=== PATIENT | female | born 1940 | race Caucasian/White ===

== ENCOUNTER 2017-07-19 13:29 | Inpatient (IN) ==
--- NOTE | 2017-07-19 14:47 | Cardiology History & Physical ---
History of Present Illness Chief complaint: dizziness and weakness HPI: Mariajose is a 76 year old female ho is known to Dr. Milligan with a history of PAF , CAD, aortic valve and carotid stenosis, HTN and HLD who went to her PCP due to dizziness and weakness, who was admitted to [facility] for observation. She was noted to have frequent PVCs and Dr. Milligan was contacted for transfer to [facility] for further evaluation. Review of Systems - Constitutional Constitutional: Present: weakness. Absent: chills, fatigue, fever(s) - EENMT Eyes: Absent: change in vision Balance: Absent: vertigo Mouth/Throat: Absent: sore throat - Cardiovascular Cardiovascular: Absent: chest pain, palpitations, syncope, dyspnea on exertion, orthopnea, edema, heart murmur Vascular: Absent: pedal edema - Respiratory Respiratory: Absent: cough, dyspnea, dyspnea on exertion - Gastrointestinal Gastrointestinal: Absent: abdominal pain, constipation, diarrhea, nausea, vomiting - Genitourinary Genitourinary: Absent: dysuria - Integumentary/Breasts Integumentary: Absent: rash - Neurological Neurological: Present: dizziness - Endocrine Endocrine: Present: palpitations PFSH Patient Stated Medical History Peripheral Neuropathy Yes Cataracts Yes: JUMA. CAT. Glaucoma Yes Cardiac Arrhythmia Yes: AFIB Congestive Heart Failure Yes Heart Murmur Yes Hypertension Yes Myocardial Infarction Yes Anesthesia Reactions Yes: N&V Other Reproductive Yes: uterine cancer Surgical History: Cholecystectomy. Hysterectomy JAXON, BSO Family History: Patient is adopted, no known family history - Social History Smoking status: Never smoker Substance use type: does not use Alcohol intake frequency: does not drink Household members: spouse Current occupational status: retired Current residence: Apartment/Private Home Medications Home Medications Medication Instructions Recorded Confirmed Type Gabapentin 1 cap PO TID #0 cap 10/08/14 07/19/17 History Levothyroxine Sodium 75 mcg PO ACB #0 tab 10/08/14 07/19/17 History Metoprolol Tartrate 100 mg PO BIDWM #0 tab 10/08/14 07/19/17 History PARoxetine HCl [Paroxetine HCl] 1 tab PO DAILY #0 10/08/14 07/19/17 History Potassium Chloride 20 meq PO BID #0 tab 10/08/14 07/19/17 History Warfarin Sodium [Coumadin] 2 mg PO NOON #0 tab 10/08/14 07/19/17 History Furosemide [Lasix 20 mg Tab] 1 tab PO BID 11/23/16 07/19/17 History Calcium 250 + D [Os [place] + D] 1 tab PO DAILY 07/19/17 07/19/17 History Lisinopril [Prinivil] 20 mg PO DAILY 07/19/17 07/19/17 History Metoprolol Tartrate 100 mg PO BID 07/19/17 07/19/17 History Rosuvastatin [Crestor] 10 mg PO DAILY 07/19/17 07/19/17 History Tramadol [Ultram] 50 mg PO Q6HR 07/19/17 07/19/17 History Amiodarone [Pacerone] 200 mg PO DAILY #30 tab 07/22/17 Rx Minocycline [Minocin] 100 mg PO BID #14 cap 07/22/17 Rx Allergies Allergy/AdvReac Type Severity Reaction Status Date / Time amoxicillin Allergy Mild NAUSEA Verified 07/19/17 17:51 codeine Allergy Unknown Vomiting Verified 07/19/17 17:51 atorvastatin [From Lipitor] Allergy Verified 07/19/17 17:51 oxycodone AdvReac Unknown N/V Verified 07/19/17 17:51 propoxyphene AdvReac Unknown N/V Verified 11/23/16 12:09 Exam - Constitutional no acute distress, well nourished, cooperative - Routine HEENT Exam Head: Present: normocephalic ENT: Present: mucous membranes moist - Routine Neck Exam Absent: JVD, carotid bruit - Routine Chest/Breast/Axilla Exam Chest wall: Absent: tenderness - Routine Respiratory Exam Present: CTA bilaterally. Absent: rales, wheezes - Routine Cardiovascular Exam Present: murmur (II/), irregularly irregular - Routine Abdominal Exam Present: soft, non tender - Routine Extremities Exam Present: no edema, pulses intact - Routine Skin Exam Present: intact, dry, warm - Routine Neurological Exam Present: alert, oriented X3 - Routine Psychiatric Exam Present: normal affect, normal thought process Results 07/25/17 03:40 07/25/17 03:40 - Imaging and Cardiology Imaging & Cardiology Narrative: Date of Exam: 07/19/17 Type of Exam(s): US echo doppler complete DATE OF PROCEDURE July 19, 2017 This is a two-dimensional echo with spectral Doppler, color-flow and M-mode. It was obtained in a patient with atrial fibrillation, dizziness, and PVCs. Left atrium is dilated. Left ventricle end-diastolic dimension is normal. Left ventricle wall thickness increased. LV systolic function is normal with ejection fraction of 68%. Right atrium is dilated. Right ventricle is normal. Aortic root dimension is normal. Mitral annulus is calcified. Mitral valve leaflets are normal with mild mitral regurgitation. Aortic valve shows fibrocalcific changes. Transaortic velocities are increased with peak velocity of 3.85 m/sec with peak gradient of 59 and mean gradient of 34. Aortic valve area is calculated at 0.81 cm2. Moderate aortic insufficiency is present. Tricuspid valve shows mild tricuspid regurgitation with severe pulmonary hypertension with estimated pulmonary artery systolic pressure of 69. Pulmonary valve shows no pulmonary insufficiency. There is no pericardial effusion. IMPRESSION 1. Normal LV systolic function with ejection fraction of 68%. 2. Biatrial dilation. 3. Concentric left ventricular hypertrophy. 4. Mitral annulus calcification with mild mitral regurgitation. 5. Moderate to severe aortic stenosis with a valve area of 0.81 cm2 with moderate aortic insufficiency. 6. Mild tricuspid regurgitation with severe pulmonary hypertension with estimated pulmonary artery systolic pressure of 69. 07/22/17 10:54 Hospital Course This is a general summary of the patient's hospital course. For more details refer to the complete medical record. Assessment and Plan - Attestation Attestation Narrative: 07/27/17 13:43 Recommendation After examining the patient I agree with the above assessment. I am involved in the formulation of the patient's plan of care. - Assessment and Plan (1) Aortic stenosis Status: Acute Moderate to severe with KAYLEY 0.81cm2 - Will need L & RHC when INR allows, probably Tuesday of this week. (2) Ventricular premature depolarization Status: Acute Bigeminal and Trigeminal pattern. - Continue to monitor telemetry - 2D echo, see report (3) Paroxysmal atrial fibrillation Status: Chronic - Amiodarone bolus and drip. - Takes Warfarin, PCP manages INRs - Hold coumadin for now, INR today 3.76 - NPO after midnight for DCCV tomorrow - Mag, TSH - EKG in am (4) Atherosclerotic heart disease of [place] coronary artery without angina pectoris Status: Chronic continue current therapy with routine monitoring (5) Occlusion and stenosis of bilateral carotid arteries Status: Chronic Has outpatient carotid duplex scheduled (6) Essential (primary) hypertension Status: Chronic Well controlled on current therapy, continue Metoprolol, Lasix and Lisinopril (7) Mixed hyperlipidemia Status: Chronic She cannot tolerate Statin therapy. - Lipid panel
[2017-07-19] MEDS ORDERED: AMIODARONE 150 MG in NS 100 ML IV ONE (15:11)
[2017-07-19] MEDS ORDERED: AMIODARONE 450 MG in NS 500ml 250 ML IV SCH (15:15)
[2017-07-19] MEDS ORDERED: HYDROCODONE/APAP 5mg/325mg TABLET PO PRN (16:31)
[2017-07-19] MEDS: ACETAMINOPHEN 325 MG TABLET PO PRN (16:53)
[2017-07-19 17:00] VITALS: BMI 31.4
[2017-07-19] MEDS: GABAPENTIN 300 MG CAPSULE PO SCH (20:39)
[2017-07-19] MEDS: TRAMADOL 50 MG TABLET PO SCH (20:39)
[2017-07-19] MEDS: ROSUVASTATIN 10 MG TABLET PO SCH (20:39)
[2017-07-19] MEDS ORDERED: AMIODARONE 900 MG in NS 500ml 500 ML IV SCH (21:15)
[2017-07-20] MEDS: TRAMADOL 50 MG TABLET PO SCH ×4 (02:01→21:24)
[2017-07-20] MEDS: LEVOTHYROXINE 75 MCG TABLET PO SCH (05:49)
--- NOTE | 2017-07-20 09:11 | XRay Report ---
INDICATION: SOA PROCEDURE: CHEST 2-VIEWS UPRIGHT (PA & LAT) Encounter: Initial COMPARISON: None FINDINGS: The lungs are clear without evidence of focal abnormal airspace opacity. There is no pleural effusion or pneumothorax. The cardiac silhouette is mildly enlarged. The mediastinal contours and pulmonary vascularity are within normal limits. There is no significant skeletal abnormality. IMPRESSION: Mild enlargement of the cardiac silhouette could be due to cardiomegaly or pericardial effusion. No focal pneumonia or overt congestive failure. .
[2017-07-20] MEDS: PAROXETINE 10 MG TABLET PO SCH (09:24)
[2017-07-20] MEDS: GABAPENTIN 300 MG CAPSULE PO SCH ×3 (09:24→21:24)
[2017-07-20] MEDS: FUROSEMIDE 20 MG TABLET PO SCH ×2 (09:28→17:29)
[2017-07-20] MEDS: ACETAMINOPHEN 325 MG TABLET PO PRN (09:29)
[2017-07-20] MEDS: LISINOPRIL 20 MG TABLET PO SCH (09:29)
--- NOTE | 2017-07-20 12:20 | Echocardiogram ---
DATE OF PROCEDURE July 19, 2017 This is a two-dimensional echo with spectral Doppler, color-flow and M-mode. It was obtained in a patient with atrial fibrillation, dizziness, and PVCs. Left atrium is dilated. Left ventricle end-diastolic dimension is normal. Left ventricle wall thickness increased. LV systolic function is normal with ejection fraction of 68%. Right atrium is dilated. Right ventricle is normal. Aortic root dimension is normal. Mitral annulus is calcified. Mitral valve leaflets are normal with mild mitral regurgitation. Aortic valve shows fibrocalcific changes. Transaortic velocities are increased with peak velocity of 3.85 m/sec with peak gradient of 59 and mean gradient of 34. Aortic valve area is calculated at 0.81 cm2. Moderate aortic insufficiency is present. Tricuspid valve shows mild tricuspid regurgitation with severe pulmonary hypertension with estimated pulmonary artery systolic pressure of 69. Pulmonary valve shows no pulmonary insufficiency. There is no pericardial effusion. IMPRESSION 1. Normal LV systolic function with ejection fraction of 68%. 2. Biatrial dilation. 3. Concentric left ventricular hypertrophy. 4. Mitral annulus calcification with mild mitral regurgitation. 5. Moderate to severe aortic stenosis with a valve area of 0.81 cm2 with moderate aortic insufficiency. 6. Mild tricuspid regurgitation with severe pulmonary hypertension with estimated pulmonary artery systolic pressure of 69. MTDD
[2017-07-20] MEDS ORDERED: FentaNYL 100 MCG/2 ML INJECTION ONE (13:40)
[2017-07-20] MEDS ORDERED: SALINE FLUSH 10ml SYRINGE ONE (13:40)
[2017-07-20] MEDS ORDERED: FLUMAZENIL 0.5mg/5ml INJECTION IVP ONE ×3 (13:40→14:03)
[2017-07-20] MEDS ORDERED: ATROPINE 0.4 MG/ML INJECTION ONE (13:40)
[2017-07-20] MEDS ORDERED: MIDAZOLAM 2mg/2ml INJECTION ONE (13:40)
[2017-07-20] MEDS ORDERED: NS FLUSH BAG 500ml IV PRN (14:00)
--- NOTE | 2017-07-20 14:07 | Wound Care Progress Note ---
Wound Center Progress Note: Pt seen for wound consult r/t MARSI (medical adhesive related skin injury). Nurse reports this wound in on pt's chest. According to nurse, pt had a cardioversion this AM, and it is not appropriate for pt to be seen at this time. Will assess pt tomorrow.
[2017-07-20] MEDS: DOPamine PREMIX 400 MG/250 ML BAG IV PRN (14:47)
[2017-07-20] MEDS ORDERED: PHYTONADIONE 1 MG/0.5 ML ORAL LIQUID PO ONE (15:24)
[2017-07-20] MEDS: ONDANSETRON ODT 4 MG TABLET PO PRN (15:37)
--- NOTE | 2017-07-20 15:48 | DC Cardioversion ---
DATE OF PROCEDURE July 20, 2017 INDICATION The patient is a 76-year-old lady who was admitted with symptomatic atrial fibrillation and PVCs and on chronic anticoagulation. She was referred for DC cardioversion after starting her on amiodarone. INFORMED CONSENT Informed consent was obtained after explaining the procedure and the potential risks to the patient and who agreed to proceed with the procedure. PROCEDURE 1. DC cardioversion. TECHNIQUE Conscious sedation was performed using Versed and fentanyl. Anterior-posterior Zoll pads were applied. 360 joules of energy was delivered in synchronized manner and patient converted from atrial fibrillation into sinus and some junctional beats. She tolerated the procedure well with no complications. IMPRESSION 1. Successful DC cardioversion of atrial fibrillation to sinus rhythm. PLAN Will continue anticoagulation in future as well as continuing antiarrhythmics to maintain sinus. JEREMY
[2017-07-20] MEDS: METOCLOPRAMIDE 10mg/2ml INJECTION IVP PRN (16:23)
[2017-07-20] MEDS: ROSUVASTATIN 10 MG TABLET PO SCH (21:53)
[2017-07-21] MEDS: TRAMADOL 50 MG TABLET PO SCH ×4 (06:35→20:45)
[2017-07-21] MEDS: LEVOTHYROXINE 75 MCG TABLET PO SCH (06:43)
[2017-07-21] MEDS: ACETAMINOPHEN 325 MG TABLET PO PRN (07:05)
[2017-07-21] MEDS: PAROXETINE 10 MG TABLET PO SCH (08:26)
[2017-07-21] MEDS: FUROSEMIDE 20 MG TABLET PO SCH ×2 (08:27→14:52)
[2017-07-21] MEDS: GABAPENTIN 300 MG CAPSULE PO SCH ×3 (08:28→20:46)
[2017-07-21] MEDS: LISINOPRIL 20 MG TABLET PO SCH (08:37)
[2017-07-21] MEDS: METOCLOPRAMIDE 10mg/2ml INJECTION IVP PRN (08:59)
[2017-07-21] MEDS: DOPamine PREMIX 400 MG/250 ML BAG IV PRN (10:20)
[2017-07-21] MEDS: ONDANSETRON ODT 4 MG TABLET PO PRN (16:07)
[2017-07-21] MEDS ORDERED: CEFAZOLIN 1 G INJECTION ONE (16:25)
[2017-07-21] MEDS ORDERED: FentaNYL 100 MCG/2 ML INJECTION ONE (16:26)
[2017-07-21] MEDS ORDERED: MIDAZOLAM 2mg/2ml INJECTION ONE (16:26)
[2017-07-21] MEDS ORDERED: SALINE FLUSH 10ml SYRINGE ONE (16:27)
[2017-07-21] MEDS ORDERED: LIDOCAINE 1% (10mg/ml) 30ml SDV INJ ONE (16:27)
[2017-07-21] MEDS ORDERED: BACITRACIN 50,000 UNIT INJECTION ONE (16:27)
[2017-07-21] MEDS ORDERED: NS 1,000 ML ONE (16:32)
--- NOTE | 2017-07-21 16:36 | Wound Care Progress Note ---
Wound Center Progress Note: Pt seen for wound consult r/t wound on R great toe and MARSI on upper R chest. Pt resting in bed. Pt has wound to R lateral great toe. She states she has no feeling in her feet, she was cutting her toenails and did not realize she had cut the nail too deep. Nail has dried blood surrounding nail bed. Lateral aspect has partial thickness wound, no slough, no drainage. All toes have a bluish color, slow to arlene. Pt reports no pain. R upper mid chest: MARSI from old telemetry patch. Area is linear, crusted, no active drainage. Pt reports no pain. Wound tx plan: To upper mid chest: apply A & D ointment. To R lateral great toe: Apply Aquacel Ag to wound bed, cover with Mepilex, change q 3 days.
--- NOTE | 2017-07-21 16:40 | Wound Care Progress Note ---
Wound Management - Patient Status Premedicated Prior to Dressing Change: No - Wound Right Lateral Great Toe Wound Type: accident Wound Present on Admission?: Yes Length: 0.5 Width: 1.1 Depth: 0.1 Wound Bed Appearance: [place] Angélica Wound Appearance: Blanched/Dull Undermining: No Drainage Amount: None Drainage Odor: No Odor Dressing Status: Changed Primary Dressing: Silver Dressing Secondary Dressing: Foam Dressing Dressing Change Date: 07/21/17 Dressing Change Time: 16:10 Dressing Change Patient Tolerance: Tolerated Well (All toes are bluish, slow to arlene.) Right Upper Medial Chest Wound Type: Medical adhesive related skin injury Length: 0.3 Width: 2 Depth: 0.1 Tunneling: No Undermining: No Drainage Amount: None Drainage Odor: No Odor Dressing Status: Open to Air (partial thickness wound/crust)
[2017-07-21] MEDS ORDERED: MAG-AL + SIM ORAL LIQUID 30ml PO PRN (17:48)
[2017-07-21] MEDS ORDERED: NS 1,000 ML IV SCH (17:48)
[2017-07-21] MEDS ORDERED: SALINE FLUSH 10ml SYRINGE IV PRN (17:48)
[2017-07-21] MEDS: AMIODARONE 200 MG TABLET PO SCH (18:31)
[2017-07-21] MEDS ORDERED: FALL RISK - PHARMACY CONSULT MC ONE (20:41)
[2017-07-21] MEDS: ROSUVASTATIN 10 MG TABLET PO SCH (20:46)
[2017-07-22] MEDS: CEFAZOLIN 1 G in NS 100 ML IV SCH ×2 (00:35→11:36)
[2017-07-22] MEDS: TRAMADOL 50 MG TABLET PO SCH ×4 (03:16→21:25)
[2017-07-22] MEDS: LEVOTHYROXINE 75 MCG TABLET PO SCH (05:57)
[2017-07-22] MEDS ORDERED: NS 1,000 ML IV SCH ×2 (08:15→21:00)
--- NOTE | 2017-07-22 09:04 | XRay Report ---
Indication: ppm PROCEDURE: XR chest 1V: Encounter: Initial Comparison: July 20, 2017 Findings: New left dual-lead cardiac pacemaker with right atrial and right ventricular leads. No evidence of lead fracture. No pneumothorax. New hazy airspace opacity in the right lower lobe without gross pleural effusion. Heart size and mediastinal contours are stable. Impression: No pneumothorax. Right lower lobe atelectasis, aspiration or pneumonia. .
--- NOTE | 2017-07-22 09:07 | XRay Report ---
INDICATION: ppm PROCEDURE: CHEST 2-VIEWS UPRIGHT (PA & LAT) Encounter: Initial COMPARISON: July 21, 2017 FINDINGS: Left pacemaker is grossly stable in appearance. No pneumothorax. Continued evidence of hazy airspace disease in the right lung base. Cardiomediastinal contours are stable. Pulmonary vascularity is normal. Impression: No pneumothorax. Persistent right basilar infiltrate. .
[2017-07-22] MEDS: PAROXETINE 10 MG TABLET PO SCH (09:39)
[2017-07-22] MEDS: AMIODARONE 200 MG TABLET PO SCH (09:39)
[2017-07-22] MEDS: FUROSEMIDE 20 MG TABLET PO SCH ×2 (09:39→16:17)
[2017-07-22] MEDS: GABAPENTIN 300 MG CAPSULE PO SCH ×3 (09:41→21:24)
[2017-07-22] MEDS: LISINOPRIL 20 MG TABLET PO SCH (09:46)
[2017-07-22] MEDS ORDERED: HEPARIN 1,000 UNITS/500 ML PREMIX (*CVL ONLY*) IV ONE (14:57)
[2017-07-22] MEDS ORDERED: LIDOCAINE 1% (10mg/ml) 30ml SDV INJ ONE (14:57)
[2017-07-22] MEDS ORDERED: FentaNYL 100 MCG/2 ML INJECTION ONE (15:07)
[2017-07-22] MEDS ORDERED: MIDAZOLAM 2mg/2ml INJECTION ONE (15:07)
[2017-07-22] MEDS ORDERED: PROMETHAZINE 25 MG INJECTION IVP PRN (16:12)
[2017-07-22] MEDS ORDERED: BISACODYL 10 MG SUPPOSITORY RECTALLY PRN (16:12)
[2017-07-22] MEDS ORDERED: MAG-AL + SIM ORAL LIQUID 30ml PO PRN (16:12)
[2017-07-22] MEDS ORDERED: ACETAMINOPHEN 325 MG TABLET PO PRN (16:12)
[2017-07-22] MEDS ORDERED: NITROGLYCERIN 0.4 MG SUBLINGUAL TABLET SL PRN (16:12)
[2017-07-22] MEDS ORDERED: Bisacodyl EC TAB 5 MG TABLET PO PRN (16:12)
[2017-07-22] MEDS ORDERED: LORazepam 0.5 MG TABLET PO PRN (16:12)
[2017-07-22] MEDS ORDERED: METOCLOPRAMIDE 10mg/2ml INJECTION IVP PRN (16:12)
[2017-07-22] MEDS ORDERED: ONDANSETRON 4 MG/2 ML INJECTION IVP PRN (16:12)
[2017-07-22] MEDS ORDERED: ATROPINE 1 MG/ML INJECTION IVP PRN (16:12)
--- NOTE | 2017-07-22 16:24 | Discharge Summary ---
<Charo Arriola M - Last Filed: 07/27/17 11:50> Discharge Information Date of admission: 07/20/17 16:45 Anticipated date of discharge: 07/22/17 Attending Physician: Dominic Milligan MD Primary care physician: Natalie Mtz APRN Consults: 07/19/17 17:40 W[facility]in Clinic Consult [CONS] Routine 07/20/17 08:06 [facility] Consult [CONS] Routine 07/21/17 07:31 W[facility]in Clinic Consult [CONS] Routine - Discharge Diagnosis (1) Aortic stenosis Status: Acute (2) Ventricular premature depolarization Status: Acute (3) Paroxysmal atrial fibrillation Status: Chronic (4) Atherosclerotic heart disease of alutiiq coronary artery without angina pectoris Status: Chronic (5) Occlusion and stenosis of bilateral carotid arteries Status: Chronic (6) Essential (primary) hypertension Status: Chronic (7) Mixed hyperlipidemia Status: Chronic CAD, AFib, PVCs, Junctional bradycardia - Procedures Procedures: DATE OF PROCEDURE July 20, 2017 INDICATION The patient is a 76-year-old lady who was admitted with symptomatic atrial fibrillation and PVCs and on chronic anticoagulation. She was referred for DC cardioversion after starting her on amiodarone. INFORMED CONSENT Informed consent was obtained after explaining the procedure and the potential risks to the patient and who agreed to proceed with the procedure. PROCEDURE 1. DC cardioversion. TECHNIQUE Conscious sedation was performed using Versed and fentanyl. Anterior-posterior Zoll pads were applied. 360 joules of energy was delivered in synchronized manner and patient converted from atrial fibrillation into sinus and some junctional beats. She tolerated the procedure well with no complications. IMPRESSION 1. Successful DC cardioversion of atrial fibrillation to sinus rhythm. PLAN Will continue anticoagulation in future as well as continuing antiarrhythmics to maintain sinus. Medtronic Dual lead pacemaker insertion Left heart cath Date of Exam: 07/22/17 Type of Exam(s): CA heart cath LT DATE OF PROCEDURE July 22, 2017 INDICATIONS The patient is a 76-year-old lady who was admitted with shortness of breath, weakness, fatigue and echocardiogram showed significant aortic stenosis and was referred for further evaluation by cardiac catheterization and possible intervention. INFORMED CONSENT Informed consent was obtained after explaining the procedure and the potential risks to the patient who agreed to proceed with the procedure. PROCEDURE 1. Left heart catheterization. 2. Coronary angiography. 3. Left ventriculography. 4. Right femoral angiography to visualize the vessel for closure device. 5. Successful Mynx deployment for hemostasis. TECHNIQUE She was prepped and draped in the usual sterile techniques. Conscious sedation was performed using Versed and fentanyl. 1% lidocaine was used for local anesthesia. Using modified Seldinger technique, arterial access was obtained into the right femoral artery with placement of a 6-[place] Island[place] arterial sheath. LEFT VENTRICULOGRAPHY Left ventriculography in single-plane SWENSON shallow projection showed normal LV systolic function with ejection fraction of 65% with 5-10 mm of gradient across the aortic valve with no mitral regurgitation. LVEDP was about 7. CORONARY ANGIOGRAPHY Left main was free of significant lesions and bifurcated into left anterior descending and left circumflex arteries. The left anterior descending artery was a medium caliber vessel which wrapped around the apex and was diffusely diseased with two lesions of about 50%. One lesion was at the junction of the proximal and mid third of the vessel. The second lesion was at the junction of the mid and distal third of the vessel. Diagonals were small with no significant lesions. Left circumflex artery was diffusely irregular with no hemodynamically significant lesions. Right coronary artery was dominant with diffuse disease of up to about 40-50%. Right femoral angiography showed patent common femoral, proximal SFA and profunda and therefore Mynx was used for hemostasis. IMPRESSION 1. Normal LV systolic function with ejection fraction of about 65%. 2. Minimal gradient across the aortic valve with what appears to be no significant aortic stenosis. 3. Moderate coronary artery disease as described above. 4. Successful Mynx deployment for hemostasis. PLAN Medical management. - Laboratory Labs: 07/22/17 04:19 07/22/17 04:19 History of Present Illness HPI: Mariajose is a 76 year old female ho is known to Dr. Milligan with a history of PAF , CAD, aortic valve and carotid stenosis, HTN and HLD who went to her PCP due to dizziness and weakness, who was admitted to [facility] for observation. She was noted to have frequent PVCs and Dr. Milligan was contacted [place] [facility]. Hospital Course This is a general summary of the patient's hospital course. For more details refer to the complete medical record. Hospital course: Resume heart healthy diet. Limit activity for 2 days. No lifting more than 10 pounds, no pushing or pulling for 1 week. No raising your left elbow over your shoulder for 3 weeks. No driving for 3 weeks. Wear your sling at night only for 3 weeks. New prescriptions: Minocycline 100 mg by mouth every morning and evening for 1 week. Amiodarone 200mg by mouth daily. Hold Lasix and Potassium for 2 days, resume Lasix 20mg by mouth daily with potassium 20mg by mouth daily on Tuesday. Resume Coumadin on Tuesday morning. Have lab drawn next Tuesday Keep site clean and dry. No tub baths or swimming for 1 week. You may shower. Aortic stenosis Current visit: Yes Status: Acute - Moderate to severe with KAYLEY 0.81cm2 - Will need L & RHC when INR allows, probably Tuesday of this week. Ventricular premature depolarization Current visit: Yes Status: Acute - Bigeminal and Trigeminal pattern. - Continue to monitor telemetry - 2D echo, see report Paroxysmal atrial fibrillation Current visit: No Status: Chronic - Amiodarone bolus and drip. - Takes Warfarin, PCP manages INRs - Hold coumadin for now, INR today 3.76 - NPO after midnight for DCCV tomorrow - Mag, TSH - EKG in am Atherosclerotic heart disease of alutiiq coronary artery without angina pectoris Current visit: No Status: Chronic - continue current therapy with routine monitoring Occlusion and stenosis of bilateral carotid arteries Current visit: No Status: Chronic - Has outpatient carotid duplex scheduled Essential (primary) hypertension Current visit: No Status: Chronic - Well controlled on current therapy, continue Metoprolol, Lasix and Lisinopril Mixed hyperlipidemia Current visit: No Status: Chronic - She cannot tolerate Statin therapy. - Lipid panel Time spent with patient: 25 - 35 minutes Resuscitation Status: Full Code Exam Vital signs: Temperature 97.8 F 07/22/17 11:31 Pulse Rate 60 07/22/17 11:40 Respiratory Rate 16 07/22/17 11:31 Blood Pressure 137/68 07/22/17 11:31 Pulse Oximetry 98 07/22/17 11:31 - Constitutional no acute distress, well nourished, cooperative - Routine HEENT Exam Head: Present: normocephalic ENT: Present: mucous membranes moist - Routine Neck Exam Present: carotid bruit. Absent: JVD - Routine Chest/Breast/Axilla Exam Chest wall: Present: tenderness, pacemaker - Routine Respiratory Exam Present: decreased breath sounds, CTA bilaterally. Absent: rales, wheezes - Routine Cardiovascular Exam Present: RRR, no murmur - Routine Abdominal Exam Present: soft, non tender - Routine Extremities Exam Present: no edema, pulses intact - Routine Skin Exam Present: intact, dry, warm - Routine Neurological Exam Present: alert, oriented X3 - Routine Psychiatric Exam Present: normal affect, normal thought process Results 07/25/17 03:40 07/25/17 03:40 Lipids 07/22/17 Range/Units 04:19 Triglycerides 66 (35-135) mg/dL Cholesterol 97 L (132-199) mg/dL HDL Cholesterol 27 L (40-60) mg/dL Cholesterol/HDL Ratio 3.6 (0-4.0) RATIO CBC 07/22/17 Range/Units 04:19 WBC 10.8 (4.5-11.0) T/MM3 RBC 3.49 L (4.00-5.20) M/MM3 Hgb 11.4 L (12-16) GM/DL Hct 36.3 (36-46) % Plt Count 166 (130-400) T/MM3 Neut # (Auto) 8.2 H (1.8-7.7) T/MM3 Lymph # (Auto) 1.5 (1-4.8) T/MM3 Sharp # (Auto) 0.9 H (0-0.8) T/MM3 Eos # (Auto) 0.2 (0-0.5) T/MM3 Baso # (Auto) 0.0 (0-0.2) T/MM3 Comprehensive Metabolic Panel 07/22/17 Range/Units 04:19 Sodium 144 (134-144) MEQ/L Potassium 4.3 (3.6-5) MEQ/L Chloride 101 (98-107) MEQ/L Carbon Dioxide 33 H (22-30) MEQ/L BUN 36.0 H (7-17) MG/DL Creatinine 1.5 H D (0.7-1.2) mg/dL Glucose 94 (65-110) MG/DL Calcium 8.8 (8.4-10.2) MG/DL Intake and Output 07/22/17 07/22/17 07/22/17 06:59 14:59 22:59 Intake Total 300 / 300 561.25 / 561.25 Output Total 600 / 600 Balance 300 / 300 -38.75 / -38.75 Intake: IV 100 / 100 121.25 / 121.25 Cefazolin 1 g In Ns 100 ml @ 100 / 100 100 / 100 200 mls/hr IV Q8HR MARCY Rx#: [id number] Ns 1,000 ml @ 75 mls/hr IV . 21.25 / 21.25 [id number] MARCY Rx#:[id number] Oral 200 / 200 440 / 440 Output: Urine 600 / 600 Other: Urine Appearance Clear Urine Color Yellow Urine Odor Normal # Voids 1 1 Weight 190 lb 0.615 oz Patient Weight 07/23/17 06:59 Weight 190 lb 0.615 oz - Imaging and Cardiology Imaging & Cardiology Narrative: Date of Exam: 07/19/17 Type of Exam(s): US echo doppler complete DATE OF PROCEDURE July 19, 2017 This is a two-dimensional echo with spectral Doppler, color-flow and M-mode. It was obtained in a patient with atrial fibrillation, dizziness, and PVCs. Left atrium is dilated. Left ventricle end-diastolic dimension is normal. Left ventricle wall thickness increased. LV systolic function is normal with ejection fraction of 68%. Right atrium is dilated. Right ventricle is normal. Aortic root dimension is normal. Mitral annulus is calcified. Mitral valve leaflets are normal with mild mitral regurgitation. Aortic valve shows fibrocalcific changes. Transaortic velocities are increased with peak velocity of 3.85 m/sec with peak gradient of 59 and mean gradient of 34. Aortic valve area is calculated at 0.81 cm2. Moderate aortic insufficiency is present. Tricuspid valve shows mild tricuspid regurgitation with severe pulmonary hypertension with estimated pulmonary artery systolic pressure of 69. Pulmonary valve shows no pulmonary insufficiency. There is no pericardial effusion. IMPRESSION 1. Normal LV systolic function with ejection fraction of 68%. 2. Biatrial dilation. 3. Concentric left ventricular hypertrophy. 4. Mitral annulus calcification with mild mitral regurgitation. 5. Moderate to severe aortic stenosis with a valve area of 0.81 cm2 with moderate aortic insufficiency. 6. Mild tricuspid regurgitation with severe pulmonary hypertension with estimated pulmonary artery systolic pressure of 69. 07/22/17 16:19 07/22/17 16:21 Patient: Mariajose Callejas MR#: [id number] : 1940 Age/Sex: 76 / F ADM Date: 07/20/17 Loc[place] [facility] [place] [facility] [place] Date: = = = = = = = = = = = = = = = = = = = = = = = = = = = = = = = = = = = = = = = = = = = = = = = = = = = = = = = = = = = Date of Exam: 07/22/17 Ordering Provider: Dominic Milligan MD Type of Exam(s): XR chest 2V Reason for Exam(s): ppm INDICATION: ppm PROCEDURE: CHEST 2-VIEWS UPRIGHT (PA & LAT) Encounter: Initial COMPARISON: July 21, 2017 FINDINGS: Left pacemaker is grossly stable in appearance. No pneumothorax. Continued evidence of hazy airspace disease in the right lung base. Cardiomediastinal contours are stable. Pulmonary vascularity is normal. Impression: No pneumothorax. Persistent right basilar infiltrate. . Discharge Plan - Med Rec/Dispo Referrals/Follow Up: Dominic Milligan MD [Physician] - 2 Weeks Natalie Mtz APRN [Primary Care Provider] - 2 Weeks (Post hospitalization.) Mrago Instructions[place] [facility] [facility] Pacemaker Implantation, A-fib (Atrial Fibrillation) (GEN) Prescriptions: New Amiodarone [Pacerone] 200 mg PO DAILY #30 tab Minocycline [Minocin] 100 mg PO BID #14 cap Continue PARoxetine HCl [Paroxetine HCl] 1 tab PO DAILY #0 Metoprolol Tartrate 100 mg PO BIDWM #0 tab Potassium Chloride 20 meq PO BID #0 tab Warfarin Sodium [Coumadin] 2 mg PO NOON #0 tab Furosemide [Lasix 20 mg Tab] 1 tab PO BID Tramadol [Ultram] 50 mg PO Q6HR Metoprolol Tartrate 100 mg PO BID Lisinopril [Prinivil] 20 mg PO DAILY Rosuvastatin [Crestor] 10 mg PO DAILY Calcium 250 + D [[place] + D] 1 tab PO DAILY Levothyroxine Sodium 75 mcg PO ACB #0 tab Gabapentin 1 cap PO TID #0 cap - Disposition [facility] - Dismissal Complete Discharge Instructions are:: Complete <Dominic Milligan - Last Filed: 07/27/17 13:58> Discharge Information Date of admission: 07/20/17 16:45 Attending Physician: Dominic Milligan MD Primary care physician: Natalie Mtz APRN Consults: 07/19/17 17:40 Wound Vein Clinic Consult [CONS] Routine 07/20/17 08:06 Wound Vein Clinic Consult [CONS] Routine 07/21/17 07:31 Wound Vein Clinic Consult [CONS] Routine 07/22/17 22:25 Case Management Consult [CONS] Routine Reason For Exam: d/c planning, ? SNU/rehab. - Discharge Diagnosis (1) Aortic stenosis Status: Acute (2) Ventricular premature depolarization Status: Acute (3) Paroxysmal atrial fibrillation Status: Chronic (4) Atherosclerotic heart disease of alutiiq coronary artery without angina pectoris Status: Chronic (5) Occlusion and stenosis of bilateral carotid arteries Status: Chronic (6) Essential (primary) hypertension Status: Chronic (7) Mixed hyperlipidemia Status: Chronic - Laboratory Labs: 07/25/17 03:40 07/25/17 03:40 Hospital Course This is a general summary of the patient's hospital course. For more details refer to the complete medical record. Exam Vital signs: Temperature 98.3 F 07/25/17 11:55 Pulse Rate 80 07/25/17 11:55 Respiratory Rate 20 07/25/17 11:55 Blood Pressure 147/70 H 07/25/17 11:55 Pulse Oximetry 93 07/25/17 11:55 Results 07/25/17 03:40 07/25/17 03:40 Attestation Narriative - Attestation Attestation Narrative: 07/27/17 13:58 Recommendation After examining the patient I agree with the above assessment. I am involved in the formulation of the patient's plan of care.
--- NOTE | 2017-07-22 17:13 | Cardiac Catheterization Report ---
DATE OF PROCEDURE July 22, 2017 INDICATIONS The patient is a 76-year-old lady who was admitted with shortness of breath, weakness, fatigue and echocardiogram showed significant aortic stenosis and was referred for further evaluation by cardiac catheterization and possible intervention. INFORMED CONSENT Informed consent was obtained after explaining the procedure and the potential risks to the patient who agreed to proceed with the procedure. PROCEDURE 1. Left heart catheterization. 2. Coronary angiography. 3. Left ventriculography. 4. Right femoral angiography to visualize the vessel for closure device. 5. Successful Mynx deployment for hemostasis. TECHNIQUE She was prepped and draped in the usual sterile techniques. Conscious sedation was performed using Versed and fentanyl. 1% lidocaine was used for local anesthesia. Using modified Seldinger technique, arterial access was obtained into the right femoral artery with placement of a 6-[place] arterial sheath. LEFT VENTRICULOGRAPHY Left ventriculography in single-plane SWENSON shallow projection showed normal LV systolic function with ejection fraction of 65% with 5-10 mm of gradient across the aortic valve with no mitral regurgitation. LVEDP was about 7. CORONARY ANGIOGRAPHY Left main was free of significant lesions and bifurcated into left anterior descending and left circumflex arteries. The left anterior descending artery was a medium caliber vessel which wrapped around the apex and was diffusely diseased with two lesions of about 50%. One lesion was at the junction of the proximal and mid third of the vessel. The second lesion was at the junction of the mid and distal third of the vessel. Diagonals were small with no significant lesions. Left circumflex artery was diffusely irregular with no hemodynamically significant lesions. Right coronary artery was dominant with diffuse disease of up to about 40-50%. Right femoral angiography showed patent common femoral, proximal SFA and profunda and therefore Mynx was used for hemostasis. IMPRESSION 1. Normal LV systolic function with ejection fraction of about 65%. 2. Minimal gradient across the aortic valve with what appears to be no significant aortic stenosis. 3. Moderate coronary artery disease as described above. 4. Successful Mynx deployment for hemostasis. PLAN Medical management. JEREMY
[2017-07-22] MEDS: MINOCYCLINE 100 MG CAPSULE PO SCH (20:08)
[2017-07-22] MEDS: ROSUVASTATIN 10 MG TABLET PO SCH (21:24)
[2017-07-23] MEDS: TRAMADOL 50 MG TABLET PO SCH ×4 (02:01→21:52)
[2017-07-23] MEDS: LEVOTHYROXINE 75 MCG TABLET PO SCH (06:19)
[2017-07-23] MEDS: PAROXETINE 10 MG TABLET PO SCH (09:39)
[2017-07-23] MEDS: AMIODARONE 200 MG TABLET PO SCH (09:39)
[2017-07-23] MEDS: MINOCYCLINE 100 MG CAPSULE PO SCH ×2 (09:40→21:51)
[2017-07-23] MEDS: GABAPENTIN 300 MG CAPSULE PO SCH ×3 (09:43→21:52)
--- NOTE | 2017-07-23 17:34 | Cardiology Progress Note ---
<Kourtney Maddox R - Last Filed: 07/24/17 14:48> Subjective Principal diagnosis: Dizziness and Weakness Interval history: Ms. Garcia is seen laying in her bed on the surgical unit. Left chest incision well approximated, no hematoma. Her discharge was held yesterday d/t weakness and orthostatic hypotension. Was called by RN who stated that the patient was ambulated and had stated that she had not been up much since admission. SBP as low as 80's/40's with ambulation and patient was dizzy. Then ordered IVF bolus, stopped her Lisinopril, Lasix and KCL. Today she has improved , tolerates ambulating without dizziness and BP remains stable with her Metoprolol. She states she still has some weakness, PT and OT were consulted yesterday to eval and question possibl SNU/HH. Exam Vital signs: Temperature 98.8 F 07/23/17 15:24 Pulse Rate 70 07/23/17 16:00 Respiratory Rate 20 07/23/17 15:24 Blood Pressure 116/73 07/23/17 15:26 Pulse Oximetry 90 07/23/17 15:24 Inpatient Medications: Generic Name Dose Route Start Last Admin Trade Name Freq PRN Reason Stop Dose Admin Acetaminophen 650 mg 07/19/17 16:31 07/21/17 07:05 Tylenol PO 650 mg Q5H PRN Administration Discomfort Acetaminophen 325 - 650 mg 07/22/17 16:12 Tylenol PO Q5H PRN Pain Hydrocodone Bitart/Acetaminophen 2 tab 07/19/17 16:31 [place] 5/325 PO Q4H PRN Pain Al Hydroxide/Mg Hydroxide 30 ml 07/21/17 17:48 Maalox Plus PO Q3H PRN Indigestion Al Hydroxide/Mg Hydroxide 30 ml 07/22/17 16:12 Maalox Plus PO Q3H PRN Indigestion Amiodarone HCl 200 mg 07/21/17 17:48 07/23/17 09:39 Pacerone PO 200 mg DAILY MARCY Administration Atropine Sulfate 0.5 mg 07/22/17 16:12 Atropine IVP Q5M PRN Bradycardia Bisacodyl 10 mg 07/22/17 16:12 Dulcolax RECTALLY DAILY PRN Constipation Bisacodyl 5 - 10 mg 07/22/17 16:12 Dulcolax PO DAILY PRN Constipation Gabapentin 300 mg 06/05/18 21:00 07/23/17 16:00 Neurontin PO 300 mg TID MARCY Administration Levothyroxine Sodium 75 mcg 07/20/17 06:30 07/23/17 06:19 Synthroid PO 75 mcg ACB MARCY Administration Lorazepam 0.5 - 1 mg 07/22/17 16:12 Ativan PO Q4H PRN Anxiety Lorazepam 0.5 - 1 mg 07/22/17 16:12 Ativan Inj IVP Q4H PRN Anxiety Magnesium Hydroxide 30 ml 07/22/17 16:12 Mom PO DAILY PRN Constipation Metoclopramide HCl 10 mg 07/20/17 16:19 07/21/17 08:59 Reglan IVP 10 mg Q6H PRN Administration Metoclopramide HCl 5 - 10 mg 07/22/17 16:12 Reglan IVP Q6H PRN Nausea &/or vomiting Metoprolol Tartrate 100 mg 07/19/17 17:45 07/23/17 09:39 Lopressor PO 100 mg BIDBS MARCY Administration Minocycline HCl 100 mg 07/22/17 21:00 07/23/17 09:40 Minocin PO 07/29/17 20:59 100 mg BID MARCY Administration Nitroglycerin 0.4 mg 07/22/17 16:12 Nitrostat SL Q5MIN3 PRN Angina Ondansetron HCl 4 mg 07/20/17 15:25 07/21/17 16:07 Zofran Odt Tablet PO 4 mg Q6H PRN Administration Nausea &/or vomiting Ondansetron HCl 4 mg 07/22/17 16:12 Zofran IVP Q6H PRN Nausea &/or vomiting Paroxetine HCl 10 mg 07/20/17 09:00 07/23/17 09:39 Paxil PO 10 mg DAILY MARCY Administration Potassium Chloride 20 meq 07/23/17 16:58 Micro-K 10 Meq Capsule PO 07/23/17 16:59 O ONE Promethazine HCl 12.5 - 25 mg 07/22/17 16:12 Phenergan Inj IVP Q6H PRN Nausea &/or vomiting Rosuvastatin Calcium 10 mg 07/19/17 21:00 07/22/17 21:24 Crestor PO 10 mg HS MARCY Administration Sodium Chloride 500 ml 07/20/17 14:00 07/20/17 14:53 Normal Saline IV 500 ml PRN PRN Administration Sodium Chloride 10 ml 07/21/17 17:48 Iv Flush IV PRN PRN Flushing Tramadol HCl 50 mg 07/19/17 21:00 07/23/17 15:59 Ultram PO 50 mg Q6HR MARCY Administration Discontinued Medications Generic Name Dose Route Start Last Admin Trade Name Freq PRN Reason Stop Dose Admin Flumazenil 0.2 mg 07/20/17 14:01 07/20/17 17:28 Romazicon IVP 07/20/17 14:02 Not Given O ONE Flumazenil 0.2 mg 07/20/17 14:03 07/20/17 17:29 Romazicon IVP 07/20/17 14:04 Not Given O ONE Furosemide 20 mg 07/20/17 09:00 07/22/17 16:17 Lasix 20 Mg Tab PO Not Given 0900,1500 MARCY Amiodarone HCl 150 mg/ Sodium 103 mls @ 618 mls/hr 07/19/17 15:11 07/19/17 16 :50 Chloride IV 07/19/17 15:20 Infused O ONE Infusion Amiodarone HCl 450 mg/ Sodium 250 mls @ 33.33 mls/hr 07/19/17 15:15 07/20/17 00:56 Chloride IV 07/19/17 21:15 Infused .[id number] MARCY Infusion 1 MG/MIN Amiodarone HCl 900 mg/ Sodium 500 mls @ 16.66 mls/hr 07/19/17 21:15 07/20/17 00:57 Chloride IV 0.5 mg/min .Q24H MARCY 16.66 mls/hr 0.5 MG/MIN Administration Dopamine HCl/Dextrose 400 mg in 250 mls @ 6.248 mls/hr 07/20/17 14:33 14:26 Dopamine Drip IV Infused .Q24H PRN Titration Protocol 2 MCG/KG/MIN Cefazolin Sodium 1 g/ Sodium 100 mls @ 200 mls/hr 07/22/17 01:00 07/22/17 12: 06 Chloride IV 07/22/17 09:29 Infused Q8HR MARCY Infusion Sodium Chloride 1,000 mls @ 75 mls/hr 07/21/17 17:48 07/21/17 17:51 Normal Saline IV 07/22/17 07:07 Not Given .[id number] MARCY Sodium Chloride 1,000 mls @ 75 mls/hr 07/22/17 08:15 07/22/17 19:00 Normal Saline IV 07/22/17 21:34 Infused .[id number] MARCY Infusion Sodium Chloride 1,000 mls @ 100 mls/hr 07/22/17 21:00 07/23/17 08:25 Normal Saline IV 07/23/17 06:59 Infused .Q10H MARCY Infusion Lisinopril 20 mg 07/20/17 09:00 07/22/17 09:46 Prinivil PO 20 mg DAILY MARCY Administration Pharmacy Consult each 07/21/17 20:41 Pharmacy Consult - Fall Risk MC 07/21/17 20:42 ONE TIME ONE Phytonadione 2 mg 07/20/17 15:24 07/20/17 15:50 Vitamin K Oral Liq PO 07/20/17 15:25 2 mg O ONE Administration Potassium Chloride 20 meq 07/19/17 17:45 07/22/17 09:40 K-Dur 20 Meq Tablet PO 20 meq BIDBS MARCY Administration - Constitutional no acute distress, obese, cooperative - Routine HEENT Exam Head: Present: normocephalic Eye: Present: EOMI ENT: Present: mucous membranes moist - Routine Neck Exam Absent: JVD, carotid bruit - Routine Respiratory Exam Present: CTA bilaterally. Absent: dyspnea, rales, respiratory distress, wheezes , crackles - Routine Cardiovascular Exam Present: RRR, no murmur. Absent: gallop Comments: Paced wiyh PVC's - Routine Abdominal Exam Present: soft, normoactive bowel sounds, non distended, non tender - Routine Extremities Exam Present: no edema, pulses intact - Routine Skin Exam Present: intact, dry, warm, wounds. Absent: erythema, rash Comments: Left Chest pacemaker incision site, well approximate with no drainage/hematoma, steri strips C/D/I. - Routine Neurological Exam Present: alert, oriented X3. Absent: altered mental status - Routine Psychiatric Exam Present: normal affect, cooperative Results 07/24/17 04:02 07/24/17 04:02 CBC 07/23/17 Range/Units 04:33 WBC 9.9 (4.5-11.0) T/MM3 RBC 3.21 L (4.00-5.20) M/MM3 Hgb 10.6 L (12-16) GM/DL Hct 33.4 L (36-46) % Plt Count 166 (130-400) T/MM3 Comprehensive Metabolic Panel 07/23/17 Range/Units 04:33 Sodium 141 (136-146) MEQ/L Potassium 3.5 L D (3.6-5) MEQ/L Chloride 101 (98-107) MEQ/L Carbon Dioxide 31 H (22-30) MEQ/L BUN 39.0 H (7-17) MG/DL Creatinine 1.7 H D (0.7-1.2) mg/dL Glucose 96 (65-110) MG/DL Calcium 8.2 L (8.4-10.2) MG/DL Intake and Output 07/23/17 07/23/17 07/23/17 06:59 14:59 22:59 Intake Total 232.5 / 232.5 1442.5 / 1442.5 Output Total 350 / 350 350 / 350 Balance -117.5 / -117.5 1092.5 / 1092.5 Intake: IV 157.5 / 157.5 842.5 / 842.5 Ns 1,000 ml @ 100 mls/hr IV . 157.5 / 157.5 842.5 / 842.5 Q10H MARCY Rx#:[id number] Oral 75 / 75 600 / 600 Output: Urine 350 / 350 350 / 350 Other: Urine Appearance Clear Clear Urine Color Dark Yellow Yellow Urine Odor Normal Normal Stool Color Brown Stool Consistency Formed Size of Bowel Movement Moderate # Bowel Movements 1 Weight 85.9 kg Patient Weight 07/24/17 06:59 Weight 85.9 kg - Imaging and Cardiology EKG results: report reviewed (Paced with 8 beats of NSVT) Assessment and Plan - Assessment and Plan (1) Atherosclerotic heart disease of [place] coronary artery without angina pectoris Status: Chronic Moderate CAD per HC 07/22/2017. Continue Crestor, no ASA with Warfarin. Monitor on tele. (2) Paroxysmal atrial fibrillation Status: Chronic DCCV 07/20/2017, pt converted to NSR then went into junctional rhythm and placed on dopamine. [employer] PMI per Dr. Milligan on 07/21/17. Currently Paced with PVC's per tele. Resume Warfarin in AM, con't PO amio and Metoprolol. Keep Mag>2.0, K+>4.0. Monitor on tele. (3) Occlusion and stenosis of bilateral carotid arteries Status: Chronic Has outpt carotid doppler scheduled. Continue med management. (4) Essential (primary) hypertension Status: Chronic Hypotensive last night, has resolved s/p IVF x1L. Continue holding ACEI and Lasix and con't taking Metoprolol. Monitor. (5) Mixed hyperlipidemia Status: Chronic Con't statin. (6) Ventricular premature depolarization Status: Acute Still having occasional PVC's. Mag WNL this AM, K+3.5. Replaced 20mEq PO KCL x1. Keep K+>4.0 and Mag>2.0. Con't to monitor on tele. (7) Aortic stenosis Status: Acute Mod-severe per Echo on 07/19/17. Minimal gradient across the AV per HC, with no significant . Routine monitoring. (8) NSVT (nonsustained ventricular tachycardia) Status: Acute 8 beats NSVT per tele. Replacing PO KCL for K+ of 3.5 today. Keep K+>4.0 and Mag>2.0. Con't PO amio. Checking ECG in AM. Con't to monitor on tele. (9) STACI (acute kidney injury) Status: Acute Cr 1.7 this AM->1.5->1.2. Stopped ACEI, holding Lasix and KCL. Repeat lab in AM. (10) Hypokalemia Status: Acute K+3.5 today. Gave 20mEq KCL PO x1. Holding scheduled KCL since holding Lasix. Replace PRN. Keep >4.0. Repeat labs in AM. (11) Orthostatic hypotension Status: Acute Orhtostatic BP overnight. Resolved today after IVF and holding ACEI. Continue to monitor. Hospital Course Summary Disclaimer: The visit summary below is not to be considered part of the above Progress Note. <Dominic Milligan - Last Filed: 07/27/17 13:48> Exam Vital signs: Temperature 98.3 F 07/25/17 11:55 Pulse Rate 80 07/25/17 11:55 Respiratory Rate 20 07/25/17 11:55 Blood Pressure 147/70 H 07/25/17 11:55 Pulse Oximetry 93 07/25/17 11:55 Inpatient Medications: Discontinued Medications Generic Name Dose Route Start Last Admin Trade Name [place]q PRN Reason Stop Dose Admin Acetaminophen 650 mg 07/19/17 16:31 07/21/17 07:05 Tylenol PO 650 mg Q5H PRN Administration Discomfort Acetaminophen 325 - 650 mg 07/22/17 16:12 Tylenol PO Q5H PRN Pain Hydrocodone Bitart/Acetaminophen 2 tab 07/19/17 16:31 [place] 5/325 PO Q4H PRN Pain Al Hydroxide/Mg Hydroxide 30 ml 07/21/17 17:48 Maalox Plus PO Q3H PRN Indigestion Al Hydroxide/Mg Hydroxide 30 ml 07/22/17 16:12 Maalox Plus PO Q3H PRN Indigestion Amiodarone HCl 200 mg 07/21/17 17:48 07/25/17 08:06 Pacerone PO 200 mg DAILY MARCY Administration Atropine Sulfate 0.5 mg 07/22/17 16:12 Atropine IVP Q5M PRN Bradycardia Bisacodyl 10 mg 07/22/17 16:12 Dulcolax RECTALLY DAILY PRN Constipation Bisacodyl 5 - 10 mg 07/22/17 16:12 Dulcolax PO DAILY PRN Constipation Flumazenil 0.2 mg 07/20/17 14:01 07/20/17 17:28 Romazicon IVP 07/20/17 14:02 Not Given O ONE Flumazenil 0.2 mg 07/20/17 14:03 07/20/17 17:29 Romazicon IVP 07/20/17 14:04 Not Given O ONE Furosemide 20 mg 07/20/17 09:00 07/22/17 16:17 Lasix 20 Mg Tab PO Not Given 0900,1500 MARCY Gabapentin 300 mg 07/19/17 21:00 07/25/17 15:18 Neurontin PO 300 mg TID MARCY Administration Amiodarone HCl 150 mg/ Sodium 103 mls @ 618 mls/hr 07/19/17 15:11 07/19/17 16 :50 Chloride IV 07/19/17 15:20 Infused O ONE Infusion Amiodarone HCl 450 mg/ Sodium 250 mls @ 33.33 mls/hr 07/19/17 15:15 07/20/17 00:56 Chloride IV 07/19/17 21:15 Infused .Q7H31M MARCY Infusion 1 MG/MIN Amiodarone HCl 900 mg/ Sodium 500 mls @ 16.66 mls/hr 07/19/17 21:15 07/20/17 00:57 Chloride IV 0.5 mg/min .Q24H MARCY 16.66 mls/hr 0.5 MG/MIN Administration Dopamine HCl/Dextrose 400 mg in 250 mls @ 6.248 mls/hr 07/20/17 14:33 14:26 Dopamine Drip IV Infused .Q24H PRN Titration Protocol 2 MCG/KG/MIN Cefazolin Sodium 1 g/ Sodium 100 mls @ 200 mls/hr 07/22/17 01:00 07/22/17 12: 06 Chloride IV 07/22/17 09:29 Infused Q8HR MARCY Infusion Sodium Chloride 1,000 mls @ 75 mls/hr 07/21/17 17:48 07/21/17 17:51 Normal Saline IV 07/22/17 07:07 Not Given .[id number] MARCY Sodium Chloride 1,000 mls @ 75 mls/hr 07/22/17 08:15 07/22/17 19:00 Normal Saline IV 07/22/17 21:34 Infused .[id number] MARCY Infusion Sodium Chloride 1,000 mls @ 100 mls/hr 07/22/17 21:00 07/23/17 08:25 Normal Saline IV 07/23/17 06:59 Infused .Q10H MARCY Infusion Levothyroxine Sodium 75 mcg 07/20/17 06:30 07/25/17 05:44 Synthroid PO Not Given ACB MARCY Lisinopril 20 mg 07/20/17 09:00 07/22/17 09:46 Prinivil PO 20 mg DAILY MARCY Administration Lorazepam 0.5 - 1 mg 07/22/17 16:12 Ativan PO Q4H PRN Anxiety Lorazepam 0.5 - 1 mg 07/22/17 16:12 Ativan Inj IVP Q4H PRN Anxiety Magnesium Hydroxide 30 ml 07/22/17 16:12 Mom PO DAILY PRN Constipation Metoclopramide HCl 10 mg 07/20/17 16:19 07/21/17 08:59 Reglan IVP 10 mg Q6H PRN Administration Metoclopramide HCl 5 - 10 mg 07/22/17 16:12 Reglan IVP Q6H PRN Nausea &/or vomiting Metoprolol Tartrate 100 mg 07/19/17 17:45 07/25/17 08:06 Lopressor PO 100 mg BIDBS MARCY Administration Minocycline HCl 100 mg 07/22/17 21:00 07/25/17 08:05 Minocin PO 07/29/17 20:59 100 mg BID MARCY Administration Nitroglycerin 0.4 mg 07/22/17 16:12 Nitrostat SL Q5MIN3 PRN Angina Ondansetron HCl 4 mg 07/20/17 15:25 07/21/17 16:07 Zofran Odt Tablet PO 4 mg Q6H PRN Administration Nausea &/or vomiting Ondansetron HCl 4 mg 07/22/17 16:12 Zofran IVP Q6H PRN Nausea &/or vomiting Paroxetine HCl 10 mg 07/20/17 09:00 07/25/17 08:05 Paxil PO 10 mg DAILY MARCY Administration Pharmacy Consult each 07/21/17 20:41 Pharmacy Consult - Fall Risk 07/21/17 20:42 ONE TIME ONE Phytonadione 2 mg 07/20/17 15:24 07/20/17 15:50 Vitamin K Oral Liq PO 07/20/17 15:25 2 mg O ONE Administration Potassium Chloride 20 meq 07/19/17 17:45 07/22/17 09:40 K-Dur 20 Meq Tablet PO 20 meq BIDBS MARCY Administration Potassium Chloride 20 meq 07/23/17 16:58 07/23/17 17:49 Micro-K 10 Meq Capsule PO 07/23/17 16:59 20 meq O ONE Administration Promethazine HCl 12.5 - 25 mg 07/22/17 16:12 Phenergan Inj IVP Q6H PRN Nausea &/or vomiting Rosuvastatin Calcium 10 mg 07/19/17 21:00 07/24/17 21:05 Crestor PO 10 mg HS MARCY Administration Sodium Chloride 500 ml 07/20/17 14:00 07/20/17 14:53 Normal Saline IV 500 ml PRN PRN Administration Sodium Chloride 10 ml 07/21/17 17:48 07/25/17 11:08 Iv Flush IV 10 ml PRN PRN Administration Flushing Tramadol HCl 50 mg 07/19/17 21:00 07/25/17 15:18 Ultram PO 50 mg Q6HR MARCY Administration Warfarin Sodium 1 each 07/23/17 18:36 07/24/17 06:39 Pharmacy Consult - Warfarin 07/23/17 18:37 Not Given O ONE Warfarin Sodium 0 07/24/17 10:30 Coumadin Protocol NOTE MARCY Warfarin Sodium 3 mg 07/24/17 12:00 07/24/17 12:08 Coumadin PO 07/24/17 12:30 3 mg NOON MARCY Administration Warfarin Sodium 2 mg 07/25/17 12:00 07/25/17 11:08 Coumadin PO 07/25/17 12:01 2 mg NOON MARCY Administration Results 07/25/17 03:40 07/25/17 03:40 Assessment and Plan - Assessment and Plan (1) Aortic stenosis Status: Acute (2) Ventricular premature depolarization Status: Acute (3) Paroxysmal atrial fibrillation Status: Chronic (4) Atherosclerotic heart disease of [place] coronary artery without angina pectoris Status: Chronic (5) Occlusion and stenosis of bilateral carotid arteries Status: Chronic (6) Essential (primary) hypertension Status: Chronic (7) Mixed hyperlipidemia Status: Chronic - Attestation Attestation Narrative: 07/27/17 13:47 This patient was examined by my GRADE RECORDER and together we discussed findings. I agree with the above assessment. I am involved in the formulation of the patient's plan of care. Hospital Course Summary Disclaimer: The visit summary below is not to be considered part of the above Progress Note.
[2017-07-23] MEDS ORDERED: WARFARIN - PHARMACY CONSULT MC ONE (18:36)
[2017-07-23] MEDS: ROSUVASTATIN 10 MG TABLET PO SCH (21:53)
[2017-07-24] MEDS: TRAMADOL 50 MG TABLET PO SCH ×4 (03:15→21:05)
[2017-07-24] MEDS: LEVOTHYROXINE 75 MCG TABLET PO SCH (05:29)
[2017-07-24] MEDS: PAROXETINE 10 MG TABLET PO SCH (08:10)
[2017-07-24] MEDS: GABAPENTIN 300 MG CAPSULE PO SCH ×3 (08:10→21:04)
[2017-07-24] MEDS: AMIODARONE 200 MG TABLET PO SCH (08:10)
[2017-07-24] MEDS: MINOCYCLINE 100 MG CAPSULE PO SCH ×2 (08:10→21:04)
--- NOTE | 2017-07-24 10:32 | Pharmacy Consult ---
Pharmacy Consult-Warfarin - Laboratory Information 07/20/17 07/20/17 07/20/17 04:32 04:32 23:44 Hgb 12.3 Hct 38.7 INR 3.76 H 1.72 H 07/21/17 07/22/17 07/23/17 04:25 04:19 04:33 Hgb 11.4 L 10.6 L Hct 36.3 33.4 L INR 1.48 H 07/24/17 07/24/17 04:02 04:02 Hgb 11.5 L Hct 36.2 INR 1.26 H - Consult Information Warfarin consult noted by Kourtney Maddox for Ms Júnior, who has chronic PAF. Her target INR is 2-3. She has a history of taking warfarin 2mg daily at home. Warfarin 3mg ordered for today. Will continue to follow. Thank you.
[2017-07-24] MEDS ORDERED: WARFARIN 3 MG TABLET PO SCH (12:00)
[2017-07-24] MEDS: ROSUVASTATIN 10 MG TABLET PO SCH (21:05)
--- NOTE | 2017-07-25 00:50 | Cardiology Progress Note ---
<Kourtney Maddox R - Last Filed: 07/25/17 00:47> Subjective Principal diagnosis: Dizziness and Weakness Interval history: The Following exam was completed at 1500 on 07/24/2017: Ms. Garcia is seen laying in her bed on the surgical unit. States she is feeling better today, able to ambulate with walker and stand by assist. Denies any CP, SOA, N/V, diaphoresis. No LE edema noted. Exam Vital signs: Temperature 98.6 F 07/24/17 22:43 Pulse Rate 75 07/25/17 00:06 Respiratory Rate 16 07/24/17 22:47 Blood Pressure 154/64 H 07/24/17 22:43 Pulse Oximetry 97 07/24/17 22:43 Inpatient Medications: Generic Name Dose Route Start Last Admin Trade Name Freq PRN Reason Stop Dose Admin Acetaminophen 650 mg 07/19/17 16:31 07/21/17 07:05 Tylenol PO 650 mg Q5H PRN Administration Discomfort Acetaminophen 325 - 650 mg 07/22/17 16:12 Tylenol PO Q5H PRN Pain Hydrocodone Bitart/Acetaminophen 2 tab 07/19/17 16:31 Finley 5/325 PO Q4H PRN Pain Al Hydroxide/Mg Hydroxide 30 ml 07/21/17 17:48 Maalox Plus PO Q3H PRN Indigestion Al Hydroxide/Mg Hydroxide 30 ml 07/22/17 16:12 Maalox Plus PO Q3H PRN Indigestion Amiodarone HCl 200 mg 07/21/17 17:48 07/24/17 08:10 Pacerone PO 200 mg DAILY MARCY Administration Atropine Sulfate 0.5 mg 07/22/17 16:12 Atropine IVP Q5M PRN Bradycardia Bisacodyl 10 mg 07/22/17 16:12 Dulcolax RECTALLY DAILY PRN Constipation Bisacodyl 5 - 10 mg 07/22/17 16:12 Dulcolax PO DAILY PRN Constipation Gabapentin 300 mg 07/19/17 21:00 07/24/17 21:04 Neurontin PO 300 mg TID MARCY Administration Levothyroxine Sodium 75 mcg 07/20/17 06:30 07/24/17 05:29 Synthroid PO 75 mcg ACB MARCY Administration Lorazepam 0.5 - 1 mg 07/22/17 16:12 Ativan PO Q4H PRN Anxiety Lorazepam 0.5 - 1 mg 07/22/17 16:12 Ativan Inj IVP Q4H PRN Anxiety Magnesium Hydroxide 30 ml 07/22/17 16:12 Mom PO DAILY PRN Constipation Metoclopramide HCl 10 mg 07/20/17 16:19 07/21/17 08:59 Reglan IVP 10 mg Q6H PRN Administration Metoclopramide HCl 5 - 10 mg 07/22/17 16:12 Reglan IVP Q6H PRN Nausea &/or vomiting Metoprolol Tartrate 100 mg 07/19/17 17:45 07/24/17 17:00 Lopressor PO 100 mg BIDBS MARCY Administration Minocycline HCl 100 mg 07/22/17 21:00 07/24/17 21:04 Minocin PO 07/29/17 20:59 100 mg BID MARCY Administration Nitroglycerin 0.4 mg 07/22/17 16:12 Nitrostat SL Q5MIN3 PRN Angina Ondansetron HCl 4 mg 07/20/17 15:25 07/21/17 16:07 Zofran Odt Tablet PO 4 mg Q6H PRN Administration Nausea &/or vomiting Ondansetron HCl 4 mg 07/22/17 16:12 Zofran IVP Q6H PRN Nausea &/or vomiting Paroxetine HCl 10 mg 07/20/17 09:00 07/24/17 08:10 Paxil PO 10 mg DAILY MARCY Administration Promethazine HCl 12.5 - 25 mg 07/22/17 16:12 Phenergan Inj IVP Q6H PRN Nausea &/or vomiting Rosuvastatin Calcium 10 mg 07/19/17 21:00 07/24/17 21:05 Crestor PO 10 mg HS MARCY Administration Sodium Chloride 500 ml 07/20/17 14:00 07/20/17 14:53 Normal Saline IV 500 ml PRN PRN Administration Sodium Chloride 10 ml 07/21/17 17:48 Iv Flush IV PRN PRN Flushing Tramadol HCl 50 mg 07/19/17 21:00 07/24/17 21:05 Ultram PO 50 mg Q6HR MARCY Administration Warfarin Sodium 0 07/24/17 10:30 Coumadin Protocol NOTE MARCY Discontinued Medications Generic Name Dose Route Start Last Admin Trade Name Freq PRN Reason Stop Dose Admin Flumazenil 0.2 mg 07/20/17 14:01 07/20/17 17:28 Romazicon IVP 07/20/17 14:02 Not Given O ONE Flumazenil 0.2 mg 07/20/17 14:03 07/20/17 17:29 Romazicon IVP 07/20/17 14:04 Not Given O ONE Furosemide 20 mg 07/20/17 09:00 07/22/17 16:17 Lasix 20 Mg Tab PO Not Given 0900,1500 MARCY Amiodarone HCl 150 mg/ Sodium 103 mls @ 618 mls/hr 07/19/17 15:11 07/19/17 16 :50 Chloride IV 07/19/17 15:20 Infused O ONE Infusion Amiodarone HCl 450 mg/ Sodium 250 mls @ 33.33 mls/hr 07/19/17 15:15 07/20/17 00:56 Chloride IV 07/19/17 21:15 Infused .[id number] MARCY Infusion 1 MG/MIN Amiodarone HCl 900 mg/ Sodium 500 mls @ 16.66 mls/hr 07/19/17 21:15 07/20/17 00:57 Chloride IV 0.5 mg/min .Q24H MARCY 16.66 mls/hr 0.5 MG/MIN Administration Dopamine HCl/Dextrose 400 mg in 250 mls @ 6.248 mls/hr 07/20/17 14:33 14:26 Dopamine Drip IV Infused .Q24H PRN Titration Protocol 2 MCG/KG/MIN Cefazolin Sodium 1 g/ Sodium 100 mls @ 200 mls/hr 07/22/17 01:00 07/22/17 12: 06 Chloride IV 07/22/17 09:29 Infused Q8HR MARCY Infusion Sodium Chloride 1,000 mls @ 75 mls/hr 07/21/17 17:48 07/21/17 17:51 Normal Saline IV 07/22/17 07:07 Not Given .[id number] MARCY Sodium Chloride 1,000 mls @ 75 mls/hr 07/22/17 08:15 07/22/17 19:00 Normal Saline IV 07/22/17 21:34 Infused .[id number] MARCY Infusion Sodium Chloride 1,000 mls @ 100 mls/hr 07/22/17 21:00 07/23/17 08:25 Normal Saline IV 07/23/17 06:59 Infused .Q10H MARCY Infusion Lisinopril 20 mg 07/20/17 09:00 07/22/17 09:46 Prinivil PO 20 mg DAILY MARCY Administration Pharmacy Consult each 07/21/17 20:41 Pharmacy Consult - Fall Risk 07/21/17 20:42 ONE TIME ONE Phytonadione 2 mg 07/20/17 15:24 07/20/17 15:50 Vitamin K Oral Liq PO 07/20/17 15:25 2 mg O ONE Administration Potassium Chloride 20 meq 07/19/17 17:45 07/22/17 09:40 K-Dur 20 Meq Tablet PO 20 meq BIDBS MARCY Administration Potassium Chloride 20 meq 07/23/17 16:58 07/23/17 17:49 Micro-K 10 Meq Capsule PO 07/23/17 16:59 20 meq O ONE Administration Warfarin Sodium 1 each 07/23/17 18:36 07/24/17 06:39 Pharmacy Consult - Warfarin 07/23/17 18:37 Not Given O ONE Warfarin Sodium 3 mg 07/24/17 12:00 07/24/17 12:08 Coumadin PO 07/24/17 12:30 3 mg NOON MARCY Administration - Constitutional no acute distress, obese, cooperative - Routine HEENT Exam Head: Present: normocephalic Eye: Present: PERRL ENT: Present: mucous membranes moist - Detailed ENT Exam Oral mucosa: Present: moist - Routine Neck Exam Absent: JVD - Routine Chest/Breast/Axilla Exam Chest wall: Present: pacemaker. Absent: tenderness Breast: Absent: rashes - Routine Respiratory Exam Present: CTA bilaterally. Absent: dyspnea, rales, respiratory distress, wheezes , crackles - Routine Cardiovascular Exam Present: RRR. Absent: JVD - Routine Abdominal Exam Present: soft, normoactive bowel sounds, non distended - Routine Extremities Exam Present: no edema, non tender. Absent: cyanosis, clubbing - Routine Neurological Exam Present: alert, oriented X3 - Routine Psychiatric Exam Present: normal affect, normal thought process, good insight Results 07/24/17 04:02 07/24/17 04:02 CBC 07/24/17 Range/Units 04:02 WBC 10.7 (4.5-11.0) T/MM3 RBC 3.49 L (4.00-5.20) M/MM3 Hgb 11.5 L (12-16) GM/DL Hct 36.2 (36-46) % Plt Count 192 (130-400) T/MM3 Comprehensive Metabolic Panel 07/24/17 Range/Units 04:02 Sodium 141 (136-146) MEQ/L Potassium 3.7 (3.6-5) MEQ/L Chloride 100 (98-107) MEQ/L Carbon Dioxide 29 (22-30) MEQ/L BUN 42.0 H (7-17) MG/DL Creatinine 1.5 H D (0.7-1.2) mg/dL Glucose 87 (65-110) MG/DL Calcium 9.1 D (8.4-10.2) MG/DL Intake and Output 07/24/17 07/24/17 07/25/17 14:59 22:59 06:59 Intake Total 120 / 120 300 / 300 Output Total 400 / 400 100 / 100 125 / 125 Balance -280 / -280 200 / 200 -125 / -125 Intake: Oral 120 / 120 300 / 300 Output: Urine 400 / 400 100 / 100 125 / 125 Other: Urine Appearance Clear Clear Clear Urine Color Straw Straw Straw Urine Odor Normal Normal Normal # Voids 1 Weight 85.6 kg Patient Weight 07/25/17 06:59 Weight 85.6 kg - EKG Interpretation EKG: sinus rhythm, no acute changes EKG shows: sinus rhythm Assessment and Plan - Assessment and Plan (1) Atherosclerotic heart disease of [place] coronary artery without angina pectoris Status: Chronic Moderate CAD per HC 07/22/2017. Continue Crestor, no ASA with Warfarin. Monitor on tele. (2) Paroxysmal atrial fibrillation Status: Chronic DCCV 07/20/2017, pt converted to NSR then went into junctional rhythm and placed on dopamine. [employer] PMI per Dr. Milligan on 07/21/17. Currently Paced with PVC's per tele, 8 beats of NSVT yesterday. Warfarin resumed today, pharmacy managing. Con't PO amio and Metoprolol. Keep Mag>2.0, K+>4.0. Monitor on tele. (3) Occlusion and stenosis of bilateral carotid arteries Status: Chronic Has outpt carotid doppler scheduled. Continue med management. (4) Essential (primary) hypertension Status: Chronic Hypotension has resolved s/p IVF. Continue holding ACEI and Lasix and con't taking Metoprolol. Monitor. (5) Mixed hyperlipidemia Status: Chronic Con't statin. (6) Ventricular premature depolarization Status: Acute Still having occasional PVC's. Mag up today, K+ WNL. Keep K+>4.0 and Mag>2.0. Con't to monitor on tele. (7) Aortic stenosis Status: Acute (8) NSVT (nonsustained ventricular tachycardia) Status: Acute 8 beats NSVT per tele yesterday. Keep K+>4.0 and Mag>2.0. Con't PO amio. ECG today NSR. Con't to monitor on tele. (9) STACI (acute kidney injury) Status: Acute Cr improved at 1.5 this AM1.7->1.5->1.2. Con't to hold ACEI, Lasix and KCL. Repeat lab in AM. (10) Hypokalemia Status: Acute K+3.8 this AM. Continuing to hold Lasix and scheduled KCL. Replace PRN. Keep >4.0. Repeat labs in AM. (11) Orthostatic hypotension Status: Acute Orthostatic BP resolved s/p IVF yesterday. Continuing to hold ACEI and Lasiz. Continue to monitor. (12) Nonrheumatic aortic valve stenosis Status: Acute Mod-severe per Echo on 07/19/17. Minimal gradient across the AV per HC, with no significant . Routine monitoring. - Assessment and Plan Disposition: Pt has improved. ?if qualify for home with HH. PT/OT to eval and recommend. Consult has been made to [facility]. Possible d/c tomorrow. Hospital Course Summary Disclaimer: The visit summary below is not to be considered part of the above Progress Note. Hospital Course: Resume heart healthy diet. Limit activity for 2 days. No lifting more than 10 pounds, no pushing or pulling for 1 week. No raising your left elbow over your shoulder for 3 weeks. No driving for 3 weeks. Wear your sling at night only for 3 weeks. New prescriptions: Minocycline 100 mg by mouth every morning and evening for 1 week. Amiodarone 200mg by mouth daily. Hold Lasix and Potassium for 2 days, resume Lasix 20mg by mouth daily with potassium 20mg by mouth daily on Tuesday. Resume Coumadin on Tuesday morning. Have lab drawn next Tuesday Keep site clean and dry. No tub baths or swimming for 1 week. You may shower. <Dominic Milligan - Last Filed: 07/27/17 13:49> Exam Vital signs: Temperature 98.3 F 07/25/17 11:55 Pulse Rate 80 07/25/17 11:55 Respiratory Rate 20 07/25/17 11:55 Blood Pressure 147/70 H 07/25/17 11:55 Pulse Oximetry 93 07/25/17 11:55 Inpatient Medications: Discontinued Medications Generic Name Dose Route Start Last Admin Trade Name Freq PRN Reason Stop Dose Admin Acetaminophen 650 mg 07/19/17 16:31 07/21/17 07:05 Tylenol PO 650 mg Q5H PRN Administration Discomfort Acetaminophen 325 - 650 mg 07/22/17 16:12 Tylenol PO Q5H PRN Pain Hydrocodone Bitart/Acetaminophen 2 tab 07/19/17 16:31 Finley 5/325 PO Q4H PRN Pain Al Hydroxide/Mg Hydroxide 30 ml 07/21/17 17:48 Maalox Plus PO Q3H PRN Indigestion Al Hydroxide/Mg Hydroxide 30 ml 07/22/17 16:12 Maalox Plus PO Q3H PRN Indigestion Amiodarone HCl 200 mg 07/21/17 17:48 07/25/17 08:06 Pacerone PO 200 mg DAILY MARCY Administration Atropine Sulfate 0.5 mg 07/22/17 16:12 Atropine IVP Q5M PRN Bradycardia Bisacodyl 10 mg 07/22/17 16:12 Dulcolax RECTALLY DAILY PRN Constipation Bisacodyl 5 - 10 mg 07/22/17 16:12 Dulcolax PO DAILY PRN Constipation Flumazenil 0.2 mg 07/20/17 14:01 07/20/17 17:28 Romazicon IVP 07/20/17 14:02 Not Given O ONE Flumazenil 0.2 mg 07/20/17 14:03 07/20/17 17:29 Romazicon IVP 07/20/17 14:04 Not Given O ONE Furosemide 20 mg 07/20/17 09:00 07/22/17 16:17 Lasix 20 Mg Tab PO Not Given 0900,1500 MARCY Gabapentin 300 mg 07/19/17 21:00 07/25/17 15:18 Neurontin PO 300 mg TID MARCY Administration Amiodarone HCl 150 mg/ Sodium 103 mls @ 618 mls/hr 07/19/17 15:11 07/19/17 16 :50 Chloride IV 07/19/17 15:20 Infused O ONE Infusion Amiodarone HCl 450 mg/ Sodium 250 mls @ 33.33 mls/hr 07/19/17 15:15 07/20/17 00:56 Chloride IV 07/19/17 21:15 Infused .[id number] MARCY Infusion 1 MG/MIN Amiodarone HCl 900 mg/ Sodium 500 mls @ 16.66 mls/hr 07/19/17 21:15 07/20/17 00:57 Chloride IV 0.5 mg/min .Q24H MARCY 16.66 mls/hr 0.5 MG/MIN Administration Dopamine HCl/Dextrose 400 mg in 250 mls @ 6.248 mls/hr 07/20/17 14:33 14:26 Dopamine Drip IV Infused .Q24H PRN Titration Protocol 2 MCG/KG/MIN Cefazolin Sodium 1 g/ Sodium 100 mls @ 200 mls/hr 07/22/17 01:00 07/22/17 12: 06 Chloride IV 07/22/17 09:29 Infused Q8HR MARCY Infusion Sodium Chloride 1,000 mls @ 75 mls/hr 07/21/17 17:48 07/21/17 17:51 Normal Saline IV 07/22/17 07:07 Not Given .[id number] MARCY Sodium Chloride 1,000 mls @ 75 mls/hr 07/22/17 08:15 07/22/17 19:00 Normal Saline IV 07/22/17 21:34 Infused .[id number] MARCY Infusion Sodium Chloride 1,000 mls @ 100 mls/hr 07/22/17 21:00 07/23/17 08:25 Normal Saline IV 07/23/17 06:59 Infused .Q10H MARCY Infusion Levothyroxine Sodium 75 mcg 07/20/17 06:30 07/25/17 05:44 Synthroid PO Not Given ACB MARCY Lisinopril 20 mg 07/20/17 09:00 07/22/17 09:46 Prinivil PO 20 mg DAILY MARCY Administration Lorazepam 0.5 - 1 mg 07/22/17 16:12 Ativan PO Q4H PRN Anxiety Lorazepam 0.5 - 1 mg 07/22/17 16:12 Ativan Inj IVP Q4H PRN Anxiety Magnesium Hydroxide 30 ml 07/22/17 16:12 Mom PO DAILY PRN Constipation Metoclopramide HCl 10 mg 07/20/17 16:19 07/21/17 08:59 Reglan IVP 10 mg Q6H PRN Administration Metoclopramide HCl 5 - 10 mg 07/22/17 16:12 Reglan IVP Q6H PRN Nausea &/or vomiting Metoprolol Tartrate 100 mg 07/19/17 17:45 07/25/17 08:06 Lopressor PO 100 mg BIDBS MARCY Administration Minocycline HCl 100 mg 07/22/17 21:00 07/25/17 08:05 Minocin PO 07/29/17 20:59 100 mg BID MARCY Administration Nitroglycerin 0.4 mg 07/22/17 16:12 Nitrostat SL Q5MIN3 PRN Angina Ondansetron HCl 4 mg 07/20/17 15:25 07/21/17 16:07 Zofran Odt Tablet PO 4 mg Q6H PRN Administration Nausea &/or vomiting Ondansetron HCl 4 mg 07/22/17 16:12 Zofran IVP Q6H PRN Nausea &/or vomiting Paroxetine HCl 10 mg 07/20/17 09:00 07/25/17 08:05 Paxil PO 10 mg DAILY MARCY Administration Pharmacy Consult each 07/21/17 20:41 Pharmacy Consult - Fall Risk 07/21/17 20:42 ONE TIME ONE Phytonadione 2 mg 07/20/17 15:24 07/20/17 15:50 Vitamin K Oral Liq PO 07/20/17 15:25 2 mg O ONE Administration Potassium Chloride 20 meq 07/19/17 17:45 07/22/17 09:40 K-Dur 20 Meq Tablet PO 20 meq BIDBS MARCY Administration Potassium Chloride 20 meq 07/23/17 16:58 07/23/17 17:49 Micro-K 10 Meq Capsule PO 07/23/17 16:59 20 meq O ONE Administration Promethazine HCl 12.5 - 25 mg 07/22/17 16:12 Phenergan Inj IVP Q6H PRN Nausea &/or vomiting Rosuvastatin Calcium 10 mg 07/19/17 21:00 07/24/17 21:05 Crestor PO 10 mg HS MARCY Administration Sodium Chloride 500 ml 07/20/17 14:00 07/20/17 14:53 Normal Saline IV 500 ml PRN PRN Administration Sodium Chloride 10 ml 07/21/17 17:48 07/25/17 11:08 Iv Flush IV 10 ml PRN PRN Administration Flushing Tramadol HCl 50 mg 07/19/17 21:00 07/25/17 15:18 Ultram PO 50 mg Q6HR MARCY Administration Warfarin Sodium 1 each 07/23/17 18:36 07/24/17 06:39 Pharmacy Consult - Warfarin 07/23/17 18:37 Not Given O ONE Warfarin Sodium 0 07/24/17 10:30 Coumadin Protocol NOTE MARCY Warfarin Sodium 3 mg 07/24/17 12:00 07/24/17 12:08 Coumadin PO 07/24/17 12:30 3 mg NOON MARCY Administration Warfarin Sodium 2 mg 07/25/17 12:00 07/25/17 11:08 Coumadin PO 07/25/17 12:01 2 mg NOON MARCY Administration Results 07/25/17 03:40 07/25/17 03:40 Assessment and Plan - Assessment and Plan (1) Aortic stenosis Status: Acute (2) Ventricular premature depolarization Status: Acute (3) Paroxysmal atrial fibrillation Status: Chronic (4) Atherosclerotic heart disease of [place] coronary artery without angina pectoris Status: Chronic (5) Occlusion and stenosis of bilateral carotid arteries Status: Chronic (6) Essential (primary) hypertension Status: Chronic (7) Mixed hyperlipidemia Status: Chronic - Attestation Attestation Narrative: This patient was examined by my [employer] PROCESSOR and together we discussed findings. I agree with the above assessment. I am involved in the formulation of the patient's plan of care. 07/27/17 13:49 Hospital Course Summary Disclaimer: The visit summary below is not to be considered part of the above Progress Note.
[2017-07-25] MEDS: TRAMADOL 50 MG TABLET PO SCH ×3 (03:27→15:18)
[2017-07-25] MEDS: LEVOTHYROXINE 75 MCG TABLET PO SCH ×2 (05:27→05:44)
[2017-07-25] MEDS: PAROXETINE 10 MG TABLET PO SCH (08:05)
[2017-07-25] MEDS: MINOCYCLINE 100 MG CAPSULE PO SCH (08:05)
[2017-07-25] MEDS: GABAPENTIN 300 MG CAPSULE PO SCH ×2 (08:06→15:18)
[2017-07-25] MEDS: AMIODARONE 200 MG TABLET PO SCH (08:06)
--- NOTE | 2017-07-25 08:18 | Pharmacy Consult ---
Pharmacy Consult-Warfarin - Laboratory Information 07/20/17 07/20/17 07/20/17 04:32 04:32 23:44 Hgb 12.3 Hct 38.7 INR 3.76 H 1.72 H 07/21/17 07/22/17 07/23/17 04:25 04:19 04:33 Hgb 11.4 L 10.6 L Hct 36.3 33.4 L INR 1.48 H 07/24/17 07/24/17 07/25/17 04:02 04:02 03:40 Hgb 11.5 L Hct 36.2 INR 1.26 H 1.34 H 07/25/17 03:40 Hgb 11.0 L Hct 34.8 L INR - Consult Information 76 y.o. F with history of a. fib. and chronic anticoagulation with warfarin. Home warfarin dose= 2 mg po daily. goal INR range= 2.0 to 3.0. INR was 3.76, supra-therapeutic, on admission and Vitamin K 2 mg po x 1 dose was given and Warfarin was held until 07/24/17 when Warfarin protocol was ordered. date INR dose 07/24 1.26 3 mg 07/25 1.24 plan: 2 mg INR is sub-therapeutic today this is likely due to Vitamin K 2 mg po dose on 07/20 , and held warfarin doses. Will give Warfarin 2 mg po today. Pharmacy will monitor and adjust. Thank you, [facility]
[2017-07-25 11:56] VITALS: BP 147/70; PULSE 80; RESP 20; TEMP 98.3; O2SAT 93
[2017-07-25] MEDS ORDERED: WARFARIN 2 MG TABLET PO SCH (12:00)
== END 2017-07-25 16:05 | disposition home health service (06) | DRG 243 ==
LOC: MED → CCU 07-20 15:45 → SRG 07-21 17:45
PROVIDERS: ADMIT Internal Medicine Cardiovascular Disease; ATTEND Internal Medicine Cardiovascular Disease